=== PATIENT | female | born 1940 | race Caucasian/White ===

== ENCOUNTER 2020-06-12 09:32 | Outpatient (CLI) | payer MEDICARE, OTHER ==
[2020-06-12] VITALS (21 sets, daily range): BP systolic 119–170; BP diastolic 64–96
== END 2020-06-12 23:59 | disposition home or self-care (01) ==
LOC: CARD DIAG 09:32
PROVIDERS: ATTEND Internal Medicine Cardiovascular Disease
DX: R55 Syncope and collapse (principal); G45.9 Transient cerebral ischemic attack, unspecified
CPT/HCPCS: 93660

== ENCOUNTER 2023-09-07 09:23 | Outpatient (CLI) | payer MEDICARE, BC | END 2023-09-07 23:59 | disposition home or self-care (01) | LOC: RAD 09:23 | PROVIDERS: ATTEND Internal Medicine Gastroenterology | DX: R13.10 Dysphagia, unspecified (principal); K22.89 Other specified disease of esophagus | CPT/HCPCS: 74220 ==

== ENCOUNTER 2023-11-01 19:29 | Observation (INO) | payer MEDICARE, BC ==
[~2023-11-01] VITALS: Ht 157.5 cm; Wt 80.0 kg
[2023-11-01 20:29] LABS: BASOPHILS # (AUTO) 0.1 X10'3 (0-0.2); LYMPHOCYTES # (AUTO) 3.9 X10'3 (1.1-4.8); NEUTROPHILS # (AUTO) 6.7 X10'3 (1.8-7.7); WHITE BLOOD COUNT 11.7 X10'3 (4.5-11.0)
[2023-11-01 20:31] LABS: BASOPHILS % (AUTO) 0.7 % (0-1); EOSINOPHILS # (AUTO) 0.3 X10'3 (0-0.9); EOSINOPHILS % (AUTO) 2.3 % (0-6); HEMATOCRIT 45.1 % (35.0-45.0); LYMPHOCYTES % (AUTO) 33.2 % (21-51); MEAN CORPUSCULAR HEMOGLOBIN 30.1 PG (27.0-31.0); MEAN CORPUSCULAR HGB CONC 33.3 g/dL (33.0-36.5); MEAN CORPUSCULAR VOLUME 90.3 FL (78-98); MONOCYTES # (AUTO) 0.8 X10'3 (0-0.9); NEUTROPHILS % (AUTO) 56.8 % (42-75); PLATELET COUNT 232 X10'3 (140-440); RED BLOOD COUNT 4.99 X10'6 (4.20-5.60)
[2023-11-01 20:35] LABS: D-DIMER 0.51 MG/L FEU (0-0.50); PROTHROMBIN TIME 10.4 SECONDS (9.0-12.0)
[2023-11-01 20:36] LABS: ALANINE AMINOTRANSFERASE 30 U/L (12-78); ALBUMIN 3.5 G/DL (3.4-5.0); ALKALINE PHOSPHATASE 94 IU/L (46-116); ANION GAP 10 (8-16); ASPARTATE AMINO TRANSFERASE 20 U/L (10-37); BILIRUBIN,TOTAL 0.4 MG/DL (0.1-1.0); BLOOD UREA NITROGEN 14 MG/DL (7-18); BUN/CREATININE RATIO 16.5 (10.0-20.0); CALCIUM 9.6 MG/DL (8.5-10.1); CHLORIDE 101 MMOL/L (99-107); CREATININE 0.85 MG/DL (0.40-0.90); GLUCOSE 130 MG/DL (70-104); SODIUM 140 MMOL/L (135-145); TOTAL CARBON DIOXIDE 29.5 MMOL/L (24-32); TOTAL PROTEIN 7.1 G/DL (6.4-8.2); eCRCL 40 ML/MIN; eGFR 64 ML/MIN
[2023-11-01] MEDS: LIDOcaine 5% patch TP ONE (23:31)
[2023-11-01] MEDS: ibuprofen tablet 400 MG TABLET PO ONE (23:31)
[2023-11-02] VITALS (9 sets, daily range): BP systolic 106–168; BP diastolic 46–68; PULSE 68–86; RESP 14–16; TEMP 96.4–98; O2SAT 94–100
[2023-11-02 02:20] LABS: BASOPHILS # (AUTO) 0.1 X10'3 (0-0.2); BASOPHILS % (AUTO) 0.9 % (0-1); EOSINOPHILS # (AUTO) 0.1 X10'3 (0-0.9); EOSINOPHILS % (AUTO) 1.5 % (0-6); HEMOGLOBIN 14.2 g/dl (12.0-16.0); LYMPHOCYTES % (AUTO) 37.6 % (21-51); MEAN CORPUSCULAR HEMOGLOBIN 30.5 PG (27.0-31.0); MEAN CORPUSCULAR HGB CONC 33.8 g/dL (33.0-36.5); MEAN CORPUSCULAR VOLUME 90.2 FL (78-98); MEAN PLATELET VOLUME 7.3 FL (7.4-10.4); MONOCYTES # (AUTO) 0.5 X10'3 (0-0.9); MONOCYTES % (AUTO) 6.8 % (2-12); NEUTROPHILS # (AUTO) 4.2 X10'3 (1.8-7.7); NEUTROPHILS % (AUTO) 53.2 % (42-75); PLATELET COUNT 197 X10'3 (140-440); RED BLOOD COUNT 4.66 X10'6 (4.20-5.60); RED CELL DISTRIBUTION WIDTH 14.1 % (11.5-14.5); WHITE BLOOD COUNT 7.9 X10'3 (4.5-11.0)
[2023-11-02 02:30] LABS: ALBUMIN 3.3 G/DL (3.4-5.0); ANION GAP 8 (8-16); BLOOD UREA NITROGEN 12 MG/DL (7-18); BUN/CREATININE RATIO 14.5 (10.0-20.0); CALCIUM 9.1 MG/DL (8.5-10.1); CHLORIDE 103 MMOL/L (99-107); CREATININE 0.83 MG/DL (0.40-0.90); GLUCOSE 109 MG/DL (70-104); POTASSIUM 3.6 MMOL/L (3.5-5.1); SODIUM 141 MMOL/L (135-145); eCRCL 41 ML/MIN; eGFR 66 ML/MIN
[2023-11-02] MEDS ORDERED: MELA5TAB12 PO (02:46)
[2023-11-02] MEDS ORDERED: CHOL10008 PO (02:46)
[2023-11-02] MEDS ORDERED: LEVO112C4 PO (02:46)
[2023-11-02] MEDS ORDERED: ATOR10TA87 PO (02:46)
[2023-11-02] MEDS ORDERED: FLUT1DIS20 INH (02:46)
[2023-11-02] MEDS ORDERED: LIOT5TAB10 PO (02:46)
[2023-11-02] MEDS ORDERED: ALBU8HFA INH (02:46)
[2023-11-02] MEDS ORDERED: PROG200C11 PO (02:46)
[2023-11-02] MEDS ORDERED: OMEGA RED KRILL PO (02:46)
[2023-11-02] MEDS ORDERED: AMLO2.5T2 PO (02:46)
[2023-11-02] MEDS ORDERED: POLY119P2 PO (02:46)
[2023-11-02] MEDS: ibuprofen tablet 400 MG TABLET PO SCH (08:00)
[2023-11-02] MEDS ORDERED: heparin, porcine 5000 units/ml vial SQ SCH (08:00)
[2023-11-02] MEDS: heparin, porcine 5000 units/ml vial SQ SCH (08:00)
[2023-11-02] MEDS: docusate sod 100mg capsule PO SCH (08:45)
[2023-11-02] MEDS ORDERED: IBUP-1984 PO (12:43)
== END 2023-11-02 14:55 | disposition home or self-care (01) ==
LOC: ER 19:29 → ED HOLD 22:27 → EDBEDREQSVC 11-02 00:11 → SUR 3N 11-02 00:40
PROVIDERS: ADMIT Internal Medicine Pulmonary Disease; ATTEND Internal Medicine
DX: M94.0 Chondrocostal junction syndrome [Tietze] (principal); I10 Essential (primary) hypertension; E78.5 Hyperlipidemia, unspecified; K21.9 Gastro-esophageal reflux disease without esophagitis; E78.00 Pure hypercholesterolemia, unspecified; K59.00 Constipation, unspecified; N95.2 Postmenopausal atrophic vaginitis; Z79.51 Long term (current) use of inhaled steroids; Z86.73 Personal history of transient ischemic attack (TIA), and cerebral infarction without residual deficits; Z87.891 Personal history of nicotine dependence; Z90.710 Acquired absence of both cervix and uterus; Z79.899 Other long term (current) drug therapy
CPT/HCPCS: 36415; 71045; 80048; 80053; 83735; 84484; 85025; 85379; 85610; 87081; 93005; 93306; 99285; G0378